=== PATIENT | male | born 1970 | race Caucasian/White ===

== ENCOUNTER 2020-10-29 19:38 | Emergency (ER) | payer SELFPAY ==
[2020-10-29 20:01] VITALS: BP 166/89; PULSE 84; TEMP 98.4; BMI 27.2
[2020-10-29] MEDS ORDERED: METOCLOPRAMIDE HCL INJECTION 10 MG/2 ML VIAL IVPB ONE (21:38)
[2020-10-29] MEDS ORDERED: SODIUM CHLORIDE 0.9% 500 ML INFUS.BAG IV ONE (21:38)
[2020-10-29] MEDS ORDERED: ACETAMINOPHEN 1000 MG/100 ML VIAL (NON FORMULARY) IVPB ONE (21:38)
[2020-10-29] MEDS ORDERED: ACETAMINOPHEN INJECTION 100 ML IVPB ONE (21:53)
[2020-10-29] MEDS ORDERED: METOCLOPRAMIDE HCL INJECTION 10 MG/2 ML VIAL ONE (21:53)
[2020-10-29 22:45] LABS: HEMATOCRIT 46.6 % (35.4-49); MCH 30.7 pg (25.7-33.7); MCHC 34.4 g/dl (32.0-35.9); MEAN CELL VOLUME 89.3 fl (80-96); MEAN PLT VOLUME 10.4 fl (7.5-11.1); PLATELET COUNT 113 K/MM3 (134-434); RBC 5.22 M/mm3 (4.00-5.60); RDW 13.2 % (11.9-15.9)
[2020-10-29 23:01] LABS: CHLORIDE 106 mmol/L (98-107); SODIUM 138 mmol/L (136-145)
[2020-10-29 23:03] LABS: ANION GAP 7 MMOL/L (8-16); BLOOD UREA NITROGEN 14.4 mg/dL (7-18); CALCIUM 9.1 mg/dL (8.5-10.1); CO2 26 mmol/L (21-32); GLUCOSE,RANDOM 95 mg/dL (74-106)
[2020-10-29 23:06] LABS: SGOT/AST 21 U/L (15-37); SGPT/ALT 55 U/L (13-61)
[2020-10-29 23:07] LABS: CREATININE 1.1 mg/dL (0.55-1.3)
[2020-10-29 23:08] LABS: BILIRUBIN,TOTAL 0.2 mg/dL (0.2-1); TOT PROT 7.9 g/dl (6.4-8.2)
[2020-10-29 23:09] LABS: ALK PHOS 132 U/L (45-117)
== END 2020-10-30 00:28 | disposition home or self-care (01) ==
LOC: JER 19:38
PROC: 3E0333Z Introduction of Anti-inflammatory into Peripheral Vein, Percutaneous Approach (ICD-10-PCS; principal; 2020-10-29)
PROC: 3E033GC Introduction of Other Therapeutic Substance into Peripheral Vein, Percutaneous Approach (ICD-10-PCS; 2020-10-29)
DX: R51.9 Headache, unspecified (principal)
CPT/HCPCS: 36415; 80053; 84484; 85027; 93005; 93010; 99284-25; J0131